=== PATIENT | female | born 1985 | race Caucasian/White ===

== ENCOUNTER 2020-07-31 14:58 | Emergency (ER) | payer SELFPAY ==
[~2020-07-31] VITALS: Ht 154.9 cm; Wt 84.2 kg
[2020-07-31] MEDS ORDERED: SODIUM CHLORIDE FLUSH 10ML SYR IVF ONE (15:30)
[2020-07-31] MEDS ORDERED: SODIUM CHLORIDE 0.9% 1,000 ML IV ONE (15:30)
[2020-07-31] MEDS ORDERED: SODIUM CHLORIDE 0.9% 1,000ML IVBOLUS ONE (15:30)
[2020-07-31] MEDS ORDERED: PROMETHAZINE 25 MG/ML, 1ML IM ONE (15:30)
[2020-07-31] MEDS ORDERED: HYDROmorphone 1 MG/ML, 1ML INJ IV ONE (15:30)
[2020-07-31 15:43] LABS: BASOPHILS % (AUTO) 1 % (0-1); EOSINOPHILS % (AUTO) 0 % (1-7); LYMPHOCYTES % (AUTO) 13 % (22-44); MEAN CORPUSCULAR HEMOGLOBIN 31.4 pg (27.0-34.8); MEAN CORPUSCULAR HGB CONC 34.3 g/dL (32.4-35.8); MEAN PLATELET VOLUME 8.1 fL (7.4-10.4); MONOCYTES % (AUTO) 5 % (2-9); NEUTROPHILS % (AUTO) 81 % (42-75); PLATELET COUNT 331 x10^3/uL (130-400); RED BLOOD COUNT 5.26 x10^6/uL (3.82-5.3); RED CELL DISTRIBUTION WIDTH 13.8 % (9.6-15.2)
[2020-07-31] MEDS ORDERED: PROMETHAZINE 25 MG/ML, 1ML ONE (15:43)
[2020-07-31] MEDS ORDERED: HYDROmorphone 1 MG/ML, 1ML INJ ONE ×2 (15:43→17:20)
[2020-07-31 15:45] LABS: MD NO
[2020-07-31 15:54] LABS: ANION GAP 10 mmol/L (5-15); CALCIUM 10.4 mg/dL (8.5-10.1); CHLORIDE 110 mmol/L (98-107); CREATININE 0.74 mg/dL (0.55-1.02)
--- NOTE | 2020-07-31 15:57 | NUR ---
MULTIPLE ATTEMPTS FOR PIV ACCESS, WITH OUT SUCCESS. TASK RN TO ATTEMPT US PIV PLACEMENT. PT REFUSES IM DILAUDID, WANTS TO WAIT FOR IV ACCESS. PHEN ADMIN PER MAY. PT AMBULATED TO RESTROOM WITH STEADY GAIT TO PROVIDE URINE SAMPLE.
--- NOTE | 2020-07-31 16:46 | NUR ---
PIV PLACED BY TASK RN. IVF RUNNING PER MAY, PAIN PLANT CONTROL AIDE. PT GOING TO CT.
[2020-07-31 17:03] LABS: MICROSCOPIC INDICATED
[2020-07-31 17:10] VITALS: BP 120/78
--- NOTE | 2020-07-31 17:11 | NUR ---
PT BACK FROM CT. PT STATES PAIN HAS DECREASED AFTER PAIN MEDS.
--- NOTE | 2020-07-31 17:13 | NUR ---
ERMD AT BEDSIDE TO UPDATE PT ON POC.
--- NOTE | 2020-07-31 17:27 | NUR ---
ACCOUNT MANAGER SALES REPRESENTATIVE PER MAR.
[2020-07-31] MEDS ORDERED: HYDROmorphone 2 MG/ML, 1ML IVPush ONE (17:30)
== END 2020-07-31 17:53 | disposition home or self-care (01) ==
LOC: ED 16:49
DX: N23 Unspecified renal colic (principal); R31.9 Hematuria, unspecified; R11.2 Nausea with vomiting, unspecified; R10.9 Unspecified abdominal pain
CPT/HCPCS: 36415; 74176; 80048; 81001; 82040; 85025; 87086; 93005; 96361; 96372; 96374; 96376; 99285; J1170; J2550; J7030